=== PATIENT | female | born 1960 | race Asian ===

== ENCOUNTER 2024-08-11 11:39 | Emergency (ER) | payer MEDICAID ==
[~2024-08-11] VITALS: Ht 157.5 cm; Wt 106.8 kg
[2024-08-11 11:49] VITALS: BP 133/83; TEMP 97.1
[2024-08-11] MEDS ORDERED: LIDO700A32 TD (13:45)
[2024-08-11] MEDS ORDERED: CYCL-1 PO (13:45)
[2024-08-11 13:46] VITALS: PULSE 68; RESP 16; O2SAT 97
[2024-08-11] MEDS ORDERED: IBUP-1984 PO (13:47)
== END 2024-08-11 13:55 | disposition home or self-care (01) ==
LOC: ER 11:40
DX: S22.31XA Fracture of one rib, right side, initial encounter for closed fracture (principal); R07.89 Other chest pain; R05.9 Cough, unspecified; W18.39XA Other fall on same level, initial encounter; Y93.89 Activity, other specified; Y92.89 Other specified places as the place of occurrence of the external cause; Y99.8 Other external cause status
CPT/HCPCS: 71101; 99283

== ENCOUNTER 2024-09-15 13:46 | Inpatient (IN) | payer MEDICAID ==
[~2024-09-15] VITALS: Ht 154.9 cm; Wt 63.6 kg
[~2024-09-15 13:46] MED LIST: CYCL-1 PO; LIDO700A32 TD
[2024-09-15] MEDS: aspirin 81mg tab.chew PO ONE (14:10)
[2024-09-15 14:15] LABS: BASOPHILS # (AUTO) 0.1 X10'3 (0-0.2); MEAN CORPUSCULAR VOLUME 95.1 FL (78-98); RED BLOOD COUNT 4.07 X10'6 (4.20-5.60)
[2024-09-15 14:16] LABS: BASOPHILS % (AUTO) 0.9 % (0-1); EOSINOPHILS % (AUTO) 0.6 % (0-6); HEMATOCRIT 38.6 % (35.0-45.0); HEMOGLOBIN 13.2 g/dl (12.0-16.0); LYMPHOCYTES # (AUTO) 2.1 X10'3 (1.1-4.8); LYMPHOCYTES % (AUTO) 27.2 % (21-51); MEAN CORPUSCULAR HEMOGLOBIN 32.5 PG (27.0-31.0); MEAN CORPUSCULAR HGB CONC 34.2 g/dL (33.0-36.5); MEAN PLATELET VOLUME 5.6 FL (7.4-10.4); MONOCYTES # (AUTO) 0.6 X10'3 (0-0.9); MONOCYTES % (AUTO) 7.5 % (2-12); NEUTROPHILS % (AUTO) 63.8 % (42-75); PLATELET COUNT 585 X10'3 (140-440); RED CELL DISTRIBUTION WIDTH 13.6 % (11.5-14.5); WHITE BLOOD COUNT 7.8 X10'3 (4.5-11.0)
[2024-09-15 14:32] LABS: ALBUMIN 4.7 G/DL (3.4-5.0); ANION GAP 9 (8-16); BLOOD UREA NITROGEN 23 MG/DL (7-18); BUN/CREATININE RATIO 22.8 (10.0-20.0); CALCIUM 9.1 MG/DL (8.5-10.1); CHLORIDE 82 MMOL/L (99-107); CREATININE 1.01 MG/DL (0.40-0.90); GLUCOSE 128 MG/DL (70-104); MAGNESIUM 2.1 MG/DL (1.5-2.4); POTASSIUM 3.6 MMOL/L (3.5-5.1); PRO BRAIN NATRIURETIC PEPTIDE < 30 PG/ML (0-125); TOTAL CARBON DIOXIDE 28.5 MMOL/L (24-32); eCRCL 43 ML/MIN; eGFR 55 ML/MIN
[2024-09-15 14:53] LABS: SODIUM 119 MMOL/L (135-145)
[2024-09-15 15:14] LABS: ETHANOL < 10 MG/DL (<10)
[2024-09-15] MEDS: normal saline 1000ML IV soln IVB ONE (15:23)
[2024-09-15] MEDS ORDERED: potassium Cl 40MEQ/1/2NS 520ml 520 ML IV PRN (16:35)
[2024-09-15] MEDS ORDERED: magnesium sulf-water 2g/50mL 50 ML IV PRN (16:35)
[2024-09-15] MEDS ORDERED: magnesium sulf-water 4G/100mL 100 ML IV PRN (16:35)
[2024-09-15] MEDS ORDERED: potassium Cl 20 mEq SR tablet PO PRN ×2 (16:35)
[2024-09-15] MEDS ORDERED: magnesium Cl slow-release 64mg tablet PO PRN (16:35)
[2024-09-15] MEDS: normal saline 1000ml 1,000 ML IV SCH (17:58)
[2024-09-15] MEDS: K and/or MAG REPLACEMENT MC SCH (20:00)
[2024-09-15 20:10] VITALS: BP 111/68; PULSE 68; RESP 16; TEMP 98.3; O2SAT 96
[2024-09-15 21:00] VITALS: RESP 16; O2SAT 98
[2024-09-15 22:00] VITALS: BP 111/68; PULSE 68; RESP 16; TEMP 98.3; O2SAT 96
[2024-09-16] VITALS (8 sets, daily range): BP systolic 88–129; BP diastolic 52–75; PULSE 62–72; RESP 12–18; TEMP 97.3–98.8; O2SAT 95–98
[2024-09-16] MEDS: acetaminophen 325mg tablet PO PRN (03:45)
[2024-09-16 08:03] LABS: BASOPHILS # (AUTO) 0.1 X10'3 (0-0.2); BASOPHILS % (AUTO) 1.3 % (0-1); EOSINOPHILS # (AUTO) 0.2 X10'3 (0-0.9); EOSINOPHILS % (AUTO) 2.9 % (0-6); HEMATOCRIT 35.6 % (35.0-45.0); HEMOGLOBIN 12.2 g/dl (12.0-16.0); LYMPHOCYTES # (AUTO) 2.9 X10'3 (1.1-4.8); MEAN CORPUSCULAR HEMOGLOBIN 33.3 PG (27.0-31.0); MEAN CORPUSCULAR HGB CONC 34.4 g/dL (33.0-36.5); MEAN CORPUSCULAR VOLUME 96.7 FL (78-98); MONOCYTES # (AUTO) 0.8 X10'3 (0-0.9); NEUTROPHILS % (AUTO) 42.8 % (42-75); PLATELET COUNT 599 X10'3 (140-440); RED BLOOD COUNT 3.68 X10'6 (4.20-5.60); RED CELL DISTRIBUTION WIDTH 13.6 % (11.5-14.5); WHITE BLOOD COUNT 6.9 X10'3 (4.5-11.0)
[2024-09-16 08:22] LABS: ALBUMIN 3.7 G/DL (3.4-5.0); ANION GAP 9 (8-16); BLOOD UREA NITROGEN 16 MG/DL (7-18); BUN/CREATININE RATIO 20.3 (10.0-20.0); CALCIUM 8.3 MG/DL (8.5-10.1); CHLORIDE 93 MMOL/L (99-107); CREATININE 0.79 MG/DL (0.40-0.90); GLUCOSE 110 MG/DL (70-104); POTASSIUM 3.5 MMOL/L (3.5-5.1); SODIUM 128 MMOL/L (135-145); TOTAL CARBON DIOXIDE 25.9 MMOL/L (24-32); eCRCL 55 ML/MIN; eGFR 74 ML/MIN
[2024-09-16] MEDS ORDERED: temazepam 15mg capsule PO PRN (18:45)
[2024-09-16] MEDS: LORazepam 1 MG tablet PO ONE (22:29)
[2024-09-17 02:00] VITALS: BP 127/67; PULSE 68; RESP 15; TEMP 97.6; O2SAT 94
[2024-09-17 06:00] VITALS: BP 131/67; PULSE 66; RESP 15; TEMP 97.8; O2SAT 98
[2024-09-17 07:45] LABS: BASOPHILS # (AUTO) 0.1 X10'3 (0-0.2); BASOPHILS % (AUTO) 1.1 % (0-1); HEMOGLOBIN 12.9 g/dl (12.0-16.0); WHITE BLOOD COUNT 6.6 X10'3 (4.5-11.0)
[2024-09-17 07:47] LABS: EOSINOPHILS # (AUTO) 0.2 X10'3 (0-0.9); EOSINOPHILS % (AUTO) 3.8 % (0-6); HEMATOCRIT 36.9 % (35.0-45.0); LYMPHOCYTES # (AUTO) 2.8 X10'3 (1.1-4.8); LYMPHOCYTES % (AUTO) 42.7 % (21-51); MEAN CORPUSCULAR HEMOGLOBIN 33.5 PG (27.0-31.0); MEAN CORPUSCULAR VOLUME 95.7 FL (78-98); MONOCYTES # (AUTO) 0.6 X10'3 (0-0.9); MONOCYTES % (AUTO) 9.1 % (2-12); NEUTROPHILS # (AUTO) 2.8 X10'3 (1.8-7.7); NEUTROPHILS % (AUTO) 43.3 % (42-75); PLATELET COUNT 657 X10'3 (140-440); RED BLOOD COUNT 3.86 X10'6 (4.20-5.60); RED CELL DISTRIBUTION WIDTH 13.4 % (11.5-14.5)
[2024-09-17 08:00] VITALS: RESP 15; O2SAT 98
[2024-09-17 08:09] LABS: ALBUMIN 3.9 G/DL (3.4-5.0); ANION GAP 10 (8-16); BLOOD UREA NITROGEN 16 MG/DL (7-18); BUN/CREATININE RATIO 22.2 (10.0-20.0); CALCIUM 8.4 MG/DL (8.5-10.1); CHLORIDE 98 MMOL/L (99-107); CREATININE 0.72 MG/DL (0.40-0.90); GLUCOSE 118 MG/DL (70-104); POTASSIUM 3.7 MMOL/L (3.5-5.1); SODIUM 132 MMOL/L (135-145); TOTAL CARBON DIOXIDE 24.5 MMOL/L (24-32); eCRCL 60 ML/MIN; eGFR 82 ML/MIN
[2024-09-17] MEDS: calcium carbonate 500mg chew tablet PO PRN (09:13)
[2024-09-17 11:00] VITALS: BP 128/56; PULSE 68; RESP 15; TEMP 97.5; O2SAT 98
== END 2024-09-17 12:50 | disposition home or self-care (01) | DRG 426 ==
LOC: ER 13:47 → ED HOLD 16:43 → UNDOADMIN 17:57 → ED HOLD 17:57 → EDBEDREQ 19:41 → ED HOLD 20:10 → PCU 3S 20:10
PROVIDERS: ADMIT Internal Medicine; ATTEND Internal Medicine
DX: E87.1 Hypo-osmolality and hyponatremia (principal); G93.49 Other encephalopathy; F32.A Depression, unspecified; F17.210 Nicotine dependence, cigarettes, uncomplicated; I10 Essential (primary) hypertension; K21.9 Gastro-esophageal reflux disease without esophagitis; Z90.81 Acquired absence of spleen
CPT/HCPCS: 36415; 71045; 80048; 80320; 83735; 83880; 83930; 84484; 85025; 87081; 93005; 99285; G0378; J7030

== ENCOUNTER 2024-09-19 09:28 | Emergency (ER) | payer MEDICAID ==
[~2024-09-19] VITALS: Ht 157.5 cm; Wt 81.4 kg
[2024-09-19 09:33] VITALS: BP 188/94; PULSE 80; RESP 16; O2SAT 98
[2024-09-19] MEDS ORDERED: DIPH25CA83 PO (11:04)
[2024-09-19 11:28] VITALS: TEMP 98
== END 2024-09-19 11:31 | disposition home or self-care (01) ==
LOC: ER 09:31
DX: G47.00 Insomnia, unspecified (principal); F41.9 Anxiety disorder, unspecified; I10 Essential (primary) hypertension; K21.9 Gastro-esophageal reflux disease without esophagitis; Z79.899 Other long term (current) drug therapy
CPT/HCPCS: 99284

== ENCOUNTER 2025-02-23 13:25 | Emergency (ER) | payer MEDICAID ==
[~2025-02-23] VITALS: Ht 149.9 cm; Wt 81.6 kg
[~2025-02-23 13:25] MED LIST changes: +DIPH25CA83 PO
[2025-02-23 13:44] VITALS: BP 140/84; PULSE 80; RESP 18; TEMP 97.9; O2SAT 97
[2025-02-23] MEDS ORDERED: AZIL1TAB3 PO (13:48)
--- NOTE | 2025-02-23 13:48 | Physician Documentation ---
History of Present Illness ~ Chief Complaint: Hypertension Stated Complaint: BLOOD PRESSURE,MEDS? Primary Medical Doctor: NO PMD HPI 65-year-old [place] female presents to the ED requesting a medication refill on her blood pressure medication. She has no other medical complaints. Day of Onset: Feb 23, 2025 Medication Reconciliation Allergies: Coded Allergies: No Known Drug Allergies (Verified Allergy, Unknown, 09/15/24) Scheduled Azilsartan Med/Chlorthalidone (Edarbyclor 40-12.5 mg Tablet), 1 TAB PO DAILY Cyclobenzaprine* (Cyclobenzaprine*), 1 TAB PO Q8H Diphenhydramine Hcl (Benadryl), 1-2 CAP PO HS Scheduled PRN Lidocaine (Lidoderm), 1 PATCH TD DAILY PRN for rib fracture Past Medical History Past Medical History: Hypertension, GERD, Depression Past Surgical History: abdominal surgery Other Past Surgical History: splenectomy Drug Use: none Lives In: Home Review of Systems All Other Systems at this time: Reviewed and Negative ROS As stated above in the HPI, otherwise all systems are reviewed and negative. Physical Exam Physical Exam General: Alert, no apparent distress. HEENT: PERRL, EOMI, no injection, moist mucous membranes. Neck: Full range of motion. Respiratory: Lungs clear, no respiratory distress. Chest: No accessory muscle use. Cardiovascular: Regular rate and rhythm, no murmurs. Gastrointestinal: Soft, nontender, nondistended. Bowels sounds present. Extremities: Normal range of motion, no deformity. Neurologic: Oriented x4. Psychiatric: Normal mood and affect. Skin: Normal color, warm and dry. No edema, no ecchymosis. Progress Results/Orders Results/Orders Vital Signs 02/23/25 13:44 Temp 97.9 Pulse 80 Resp 18 B/P (MAP) 140/84 Pulse Ox 97 Medical Decision Making Findings Patient was not present with any emergent concerns she maintains that she has no cardiac symptoms no headache. Just needs a medication refill Differential Dx:Considerations: Include CHF, Include HTN, essential, Include HTN, accelerated, Include HTN, malignant, Include HTN, encephalopathy, Include medical noncompliance, Include medication withdrawal, Include pulmonary edema, Include renal failure, Include -induced, Include other Departure Disposition: HOME / SELF CARE / HOMELESS Impression: Primary Impression: Benign hypertension Condition: Stable Discharge Instructions: Hypertension, Adult Referrals: NO PRIMARY CARE PROVIDER (PCP) Prescriptions Azilsartan Med/Chlorthalidone (Edarbyclor 40-12.5 mg Tablet) 40 Mg-12.5 Mg Tablet 1 TAB PO DAILY for 30 Days, #30 TAB 0 Refills Prov: CORNELIUS LARA NP 02/23/25 Signature Scribe Signature: r Attestation: The note accurately reflects work and decisions made by me.Cornelius Hernandez NP 02/23/25 16:26 CORNELIUS LARA NP Feb 23, 2025 13:48
== END 2025-02-23 14:01 | disposition home or self-care (01) ==
LOC: ER 13:26
DX: I10 Essential (primary) hypertension (principal); Z76.0 Encounter for issue of repeat prescription
CPT/HCPCS: 99281